=== PATIENT | female | born 1995 | race Caucasian/White ===

== ENCOUNTER 2023-07-04 00:28 | Observation (INO) | payer SELFPAY ==
[~2023-07-04] VITALS: Ht 165.1 cm; Wt 83.9 kg
[~2023-07-04 00:28] MED LIST: PNV91TAB10 PO
[2023-07-04 01:32] VITALS: BP 104/72; PULSE 75; RESP 18; TEMP 98.4
[2023-07-04] MEDS ORDERED: LACTATED RINGERS 1,000 ML IV SCH (04:30)
[2023-07-04] MEDS ORDERED: MORPHINE SULFATE 4 MG/ML SYR IVP ONE (04:30)
[2023-07-04 07:04] LABS: APPEARANCE,URINE CLEAR (CLEAR); BILIRUBIN,URINE NEGATIVE (NEGATIVE); BLOOD, URINE NEGATIVE (NEGATIVE); COLOR,URINE YELLOW (YELLOW); LEUKOCYTE ESTERASE ,URINE NEGATIVE (NEGATIVE); NITRITE, URINE NEGATIVE (NEGATIVE); PH,URINE 6.5 (5.0-9.0); UGLUCOSE NEGATIVE (NEGATIVE)
== END 2023-07-04 09:14 | disposition home or self-care (01) ==
LOC: MLD 00:28
PROVIDERS: ADMIT Obstetrics & Gynecology; ATTEND Obstetrics & Gynecology
DX: O62.9 Abnormality of forces of labor, unspecified (principal); Z3A.38 38 weeks gestation of pregnancy
CPT/HCPCS: 81003; 96360; 96361; G0378; J2270